=== PATIENT | female | born 1985 | race Caucasian/White ===

== ENCOUNTER 2017-05-15 19:21 | Emergency (ER) | payer SELFPAY ==
[~2017-05-15] VITALS: Ht 152.4 cm; Wt 56.0 kg
[2017-05-15 19:29] VITALS: BP 112/78; PULSE 88; RESP 18; TEMP 98.8; O2SAT 98
[2017-05-15] MEDS ORDERED: IBUPROFEN 600 MG TAB PO ONE (20:00)
--- NOTE | 2017-05-15 20:17 | PD ---
HPI Chief Complaint: Fall Time Seen by Provider: 19:55 Travel History International Travel<30 days: No Contact w/Intl Traveler<30days: No Traveled to known affect area: No History of Present Illness HPI 32-year-old female presents to the emergency room via ambulance for evaluation of low back and buttocks pain after slip and fall just prior to arrival. She is Upper Sorbian-speaking and senior accounts payable specialist was used throughout history and physical exam. Patient was at a restaurant, holding her baby, when she slipped on water and fell directly backwards striking her buttocks on the ground before hitting the back of her head. She reports extreme low back pain with radiation down her right lower leg. Pain stops at her knee. It is worse with certain range of motion. There was no loss of consciousness, nausea, vomiting, or severe headache. She has mild posterior headache. She is not on blood thinners. Patient states the employees at the restaurant made her sit down as soon as she got up from the fall. She was able to take 3 steps before they forced her to sit. She denies upper or lower extremity paresthesias, saddle anesthesia, or loss of bowel or bladder control. No chronic medical conditions or daily medications. Patient has had a history of tubal ligation. [facility] Past Medical History Medical History: Denies Significant Hx Diminished Hearing: No Tetanus Vaccination: Unknown Influenza Vaccination: No ?: Not LMP: 2 MTHS Tubal Ligation: Yes Past Surgical History Section: Yes Social History Alcohol Use: No Tobacco Use: No Substance Use: No Allergies-Medications (Allergen,Severity, Reaction): Coded Allergies: No Known Allergies (Unverified , 05/15/17) Reported Meds & Prescriptions Reported Meds & Active Scripts Active No Active Prescriptions or Reported Medications Review of Systems Except as stated in HPI: all other systems reviewed are Neg Physical Exam Narrative GENERAL: Well-nourished, well-developed female in no acute distress. Afebrile. Ambulatory. SKIN: Focused skin assessment warm/dry. No erythema or ecchymosis noted. HEAD: Normocephalic. EYES: No scleral icterus. No injection or drainage. NECK: Supple, trachea midline. No JVD or lymphadenopathy. CARDIOVASCULAR: Regular rate and rhythm without murmurs, gallops, or rubs. RESPIRATORY: Breath sounds equal bilaterally. No accessory muscle use. MUSCULOSKELETAL: No cyanosis, or edema. BACK: Midline tenderness of the lumbar spine. No obvious deformity. No CVA tenderness. Positive straight leg raise on the right. Data Data Last Documented VS Vital Signs Date Time Temp Pulse Resp B/P (MAP) Pulse Ox O2 Delivery O2 Flow Rate FiO2 05/15/17 21:03 77 18 105/54 (71) 97 Room Air 05/15/17 19:29 98.8 Orders Orders Spine, Lumbar - Ltd (Ap & Lat) (05/15/17 ) Sacrum And Coccyx (05/15/17 ) Ibuprofen (Motrin) (05/15/17 20:00) Ct Brain W/O Iv Contrast(Rout) (05/15/17 ) [facility] Medical Decision Making Medical Screen Exam Complete: Yes Emergency Medical Condition: Yes Medical Record Reviewed: Yes Differential Diagnosis Closed head injury, concussion, contusion, low back strain, fracture, sprain, strain Narrative Course 32-year-old female presents to the emergency room via ambulance for evaluation of low back pain radiating down the right lower extremity and headache after slip and fall just prior to arrival. Patient slipped on water and fell backwards landing directly on her buttocks before striking the back of her head. There was no loss of consciousness, nausea, vomiting. She is not on blood thinners. Physical exam is reassuring. Patient has midline tenderness of her lumbar spine but there is no step-off deformity. Positive straight leg raise on the right. No focal neurological deficits. No open wounds. CT of the brain is negative. X-ray of the low back and coccyx is negative. This is contusion/strain. Patient discharged with prescription for ibuprofen and told to follow up with a primary care physician for outpatient MRI of her back if symptoms persist. Told to return for worsening symptoms. She understands and agrees to plan. Diagnosis Primary Impression: Low back pain Qualified Codes: M54.41 - Lumbago with sciatica, right side Additional Impression: Closed head injury Qualified Codes: S09.90XA - Unspecified injury of head, initial encounter Referrals: Primary Care Physician Additional Instructions: Rest and drink plenty of fluids. Take ibuprofen with food as directed, as needed for pain. Apply ice to the affected area for 20 minutes at a time, as needed for pain and swelling. Follow-up with a primary care physician for further imaging if symptoms persist. Return to the emergency room for worsening symptoms. Scripts No Active Prescriptions or Reported Meds Disposition: 01 DISCHARGE HOME Condition: Stable Althea Lyons May 15, 2017 20:17
--- NOTE | 2017-05-15 20:52 | RADRPT ---
EXAM DATE/TIME: 05/15/2017 20:25 [facility] COMPARISON: No previous studies available for comparison. INDICATIONS : Lower back pain post fall. MEDICAL HISTORY : None. SURGICAL HISTORY : None. ENCOUNTER: Initial ACUITY: 1 day PAIN SCORE: 7/10 LOCATION: lumbar spine. FINDINGS: Two view examination was performed. There are five non-rib bearing vertebral bodies. The vertebral bodies are in normal alignment without evidence of subluxation or scoliosis. The disc spaces are dorota ntained. The pedicles are intact. Bony mineralization is normal. No fracture is identified. CONCLUSION: Normal radiographic appearance of the lumbar spine. Jae Beltre MD on May 15, 2017 at 20:50 Board Certified Radiologist. This report was verified electronically.
--- NOTE | 2017-05-15 20:52 | RADRPT ---
EXAM DATE/TIME: 05/15/2017 20:26 [facility] COMPARISON: No previous studies available for comparison. INDICATIONS : Lower back pain post fall. MEDICAL HISTORY : SURGICAL HISTORY : None. ENCOUNTER: Initial ACUITY: 1 day PAIN SCORE: 9/10 LOCATION: sacrum. FINDINGS: Two-view examination of the sacrum and coccyx demonstrates no evidence of fracture or malalignment. The sacral ala and foramina appear symmetric and intact. The coccyx appears unremarkable. The preve rtebral soft tissues are within normal limits. CONCLUSION: Normal radiographic appearance of the sacrum and coccyx. Jae Beltre MD on May 15, 2017 at 20:51 Board Certified Radiologist. This report was verified electronically.
[2017-05-15 21:03] VITALS: BP 105/54; PULSE 77; RESP 18; O2SAT 97
--- NOTE | 2017-05-15 21:38 | RADRPT ---
EXAM DATE/TIME: 05/15/2017 21:17 [facility] COMPARISON: No previous studies available for comparison. INDICATIONS : Trauma, fall. RADIATION DOSE: 56.66 CTDIvol (mGy) MEDICAL HISTORY : None SURGICAL HISTORY : None. ENCOUNTER: Initial ACUITY: 1 day PAIN SCALE: 8/10 LOCATION: cranial TECHNIQUE: Multiple contiguous axial images were obtained of the head. Using automated exposure control and adj ustment of the mA and/or kV according to patient size, radiation dose was kept as low as reasonably a chievable to obtain optimal diagnostic quality images. DICOM format image data is available electro nically for review and comparison. FINDINGS: CEREBRUM: The ventricles are normal for age. No evidence of midline shift, mass lesion, hemorrhage or acute in farction. No extra-axial fluid collections are seen. POSTERIOR FOSSA: The cerebellum and brainstem are intact. The 4th ventricle is midline. The cerebellopontine angle i s unremarkable. EXTRACRANIAL: The visualized portion of the orbits is intact. SKULL: The calvaria is intact. No evidence of skull fracture. CONCLUSION: Negative noncontrast head CT. Jae Beltre MD on May 15, 2017 at 21:36 Board Certified Radiologist. This report was verified electronically.
[2017-05-15] MEDS ORDERED: IBUP800T23 PO (21:54)
== END 2017-05-15 22:10 | disposition home or self-care (01) ==
LOC: PHEFT 19:21
DX: M54.41 Lumbago with sciatica, right side (principal); S09.90XA Unspecified injury of head, initial encounter; W01.0XXA Fall on same level from slipping, tripping and stumbling without subsequent striking against object, initial encounter; Y92.511 Restaurant or cafe as the place of occurrence of the external cause
CPT/HCPCS: 70450; 72100; 72220